=== PATIENT | female | born 1995 | race African-American/Black ===

== ENCOUNTER 2017-04-02 08:34 | Emergency (ER) | payer OTHER ==
[~2017-04-02] VITALS: Ht 167.6 cm; Wt 59.9 kg
[2017-04-02 08:42] VITALS: BP 129/77
[2017-04-02] MEDS ORDERED: IBUP600T26 PO (09:09)
== END 2017-04-02 09:24 | disposition home or self-care (01) ==
LOC: M ED 09:12
DX: S02.5XXA Fracture of tooth (traumatic), initial encounter for closed fracture (principal); X58.XXXA Exposure to other specified factors, initial encounter; Y92.89 Other specified places as the place of occurrence of the external cause; Y93.89 Activity, other specified; Y99.9 Unspecified external cause status